=== PATIENT | female | born 1965 | race Caucasian/White ===

== ENCOUNTER 2024-02-21 17:45 | Emergency (ER) | payer OTHER, SELFPAY ==
[2024-02-21 18:02] VITALS: BP 130/87; PULSE 114; RESP 15; TEMP 36.6; O2SAT 98
[2024-02-21 19:14] LABS: Basophils # 0.1 10^3/uL (0.0-0.1); Basophils % 0.8 %; Eosinophils # 0.3 10^3/uL (0.0-0.8); Eosinophils % 3.9 %; Lymphocytes # 2.5 10^3/uL (0.8-4.8); Lymphocytes % 35.2 %; Mean Corpuscular HGB Conc 33.8 g/dL (30-55); Mean Corpuscular Hemoglobin 32.1 pg (27-33); Mean Corpuscular Volume 95.1 fl (85-98); Mean Platelet Volume 10.2 fL (7.4-10.4); Monocytes # 0.6 10^3/uL (0.2-0.9); Monocytes % 8.3 %; Neutrophils # 3.69 10^3/uL (1.8-7.7); Neutrophils % 51.7 %; Nucleated Red Blood Cells % 0 %; Platelet Count 324 10^3/cmm (157-399); Red Blood Count 3.89 10^6/uL (3.85-5.65); Red Cell Distribution Width 13.5 % (12.1-15.1); White Blood Count 7.15 10^3/uL (3.29-11.43)
[2024-02-21 19:33] LABS: Alanine Aminotransferase 18 U/L (0-33); Albumin Level 4.6 g/dL (3.5-5.2); Alkaline Phosphatase 146 U/L (35-105); Anion Gap 15.2 (5-19); Aspartate Amino Transferase 19 U/L (0-32); Blood Urea Nitrogen 25 mg/dL (6-20); Calcium 9.4 mg/dL (8.5-10.5); Carbon Dioxide 27 mmol/L (22-29); Chloride 100 mmol/L (98-107); Creatinine Clr Calc Pharmacy 45.9612; Globulin 3.4 g/dL (1.3-4.6); Glucose 102 mg/dL (65-115); Lipase 55 U/L (13-60); Osmolality Calculated 293 mOsm/kg (285-295); Potassium 3.2 mmol/L (3.5-5.1); Sodium 139 mmol/L (136-145); Total Bilirubin 0.2 mg/dL (0.15-1.2)
--- NOTE | 2024-02-21 19:43 | ED_ITS ---
HPI - Abdominal Pain 2 General: Chief Complaint: Abdominal Pain Stated Complaint: abd pain, diarrhea Time Seen by Provider: 02/21/24 19:40 History of Present Illness: 58-year-old female with a history of div erticulosis/diverticulitis, hypertension, hypothyroidism and anxiety who presents to the emergency room with left lower and upper quadrant abdominal pain and diarrhea for several days. She is very tearful on presentation. She has had some nausea no vomiting. No known fevers. No chest pain. No shortness of breath. No altered mental status. No focal motor deficits. Review of Systems 2 Narrative: Constitutional symptoms: Negative except as documented in HPI. Skin symptoms: Negative except as documented in HPI. Eye symptoms: Negative except as documented in HPI. ENMT symptoms: Negative except as documented in HPI. Respiratory symptoms: Negative except as documented in HPI. Cardiovascular symptoms: Negative except as documented in HPI. Gastrointestinal symptoms: Negative except as documented in HPI. Genitourinary symptoms: Negative except as documented in HPI. Musculoskeletal symptoms: Negative except as documented in HPI. Neurologic symptoms: Negative except as documented in HPI. Psychiatric symptoms: Negative except as documented in HPI. Endocrine symptoms: Negative except as documented in HPI. Physical Exam 2 Narrative: EXAM NARRATIVE: General: Alert, no acute distress. Skin: Warm, dry. Head: Normocephalic, atraumatic. Neck: Supple, trachea midline. Eye: Extraocular movements are intact. Ears, nose, mouth and throat: mucosa moist. Cardiovascular: Regular, Normal peripheral perfusion. Respiratory: Lungs are clear to auscultation, respirations are non-labored, breath sounds are equal, Symmetrical chest wall expansion. Gastrointestinal: Soft, moderate left-sided abdominal pain, Non distended, Normal bowel sounds. Musculoskeletal: Normal ROM, no deformity. Neurological: Alert and oriented, No focal neurological deficit observed. Psychiatric: Cooperative, tearful Course 2 Vital Signs: Vital signs: Vital Signs Temperature 97.9 F 02/21/24 18:02 Pulse Rate 71 02/21/24 21:32 Respiratory Rate 16 02/21/24 21:32 Blood Pressure 116/82 02/21/24 21:32 Pulse Oximetry 94 02/21/24 21:32 Oxygen Delivery Me thod Room Air 02/21/24 18:02 MDM - Abdominal Pain Medical Decision Making Medical decision making: Differential diagnosis including but not limited to and based on the above HPI, review of systems and physical exam: First concern be for diverticulitis lab work and a CT was ordered. Also concern for dehydration so BMP look at renal function. Also would be concern for UTI or ureterolithiasis so urine was ordered. Orders placed to evaluate differential diagnosis based on the above differential, HPI and physical exam Lab Review: Laboratory results were reviewed and interpreted by myself the emergency room physician. Lab work is unremarkable. No leukocytosis. BUN and creatinine are 25 and 1.2. So she has some slight renal insufficiency and is receiving fluids, however I do not have any baseline labs. I reviewed the patient's medical record. CT of the abdomen and pelvis: Patient has multiple diverticuli. No obvious acute inflammatory changes. No signs of obstruction. No other acute findings. This was reviewed and interpreted by myself the emergency room physician. I also reviewed the radiology report. Reexamination: Patient remained stable. She still having some pain. Toradol did not help but she does not want anything any stronger. No altered mental status. No focal motor deficits. However she continues to ask for something for pain but stronger than Tylenol and ibuprofen so organ to try some tramadol. She feels like [place] was too strong. No increased work of breathing. No altered mental status. No focal motor deficits. We discussed further and she seems to have some chronic abdominal issues. She is having pretty severe pain and says it feels just like when she has had diverticulitis so although the CT scan does not show any active inflammation I am going to treat her with antibiotics for now. Assessment and plan: Diverticulitis Dehydration Abdominal pain -IV fluids and IV Toradol initially. ? IV Flagyl and IV Cipro. ? We are trying oral tramadol here. - Discharged home - Discussed findings and plan with patient. Answered any questions. - All laboratory values were reviewed and interpreted personally by myself, the ER physician - All imaging was reviewed and interpreted personally by myself, the ER physician. - Evaluation and treatment of this problem were appropriate in the emergency setting : Lab Data 02/21/24 19:05 02/21/24 19:05 Labs/Radiology: Radiology Impressions Abdomen/Pelvis CT 02/21/24 19:45 IMPRESSION: No acute subdiaphragmatic pathology. Laboratory Results WBC 7.15 10^3/uL (3.29-11.43) 02/21/24 19:05 RBC 3.89 10^6/uL (3.85-5.65) 02/21/24 19:05 Hgb 12.50 g/dL (11.27-16.99) 02/21/24 19:05 Hct 37.0 % (36-47) 02/21/24 19:05 MCV 95.1 fl (85-98) 02/21/24 19:05 MCH 32.1 pg (27-33) 02/21/24 19:05 MCHC 33.8 g/dL (30-55) 02/21/24 19:05 RDW 13.5 % (12.1-15.1) 02/21/24 19:05 Plt Count 324 10^3/cmm (157-399) 02/21/24 19:05 MPV 10.2 fL (7.4-10.4) 02/21/24 19:05 Neut % (Auto) 51.7 % 02/21/24 19:05 Lymph % (Auto) 35.2 % 02/21/24 19:05 [place] % (Auto) 8.3 % 02/21/24 19:05 Eos % (Auto) 3.9 % 02/21/24 19:05 Baso % (Auto) 0.8 % 02/21/24 19:05 Neut # (Auto) 3.69 10^3/uL (1.8-7.7) 02/21/24 19:05 Lymph # (Auto) 2.5 10^3/uL (0.8-4.8) 02/21/24 19:05 [place] # (Auto) 0.6 10^3/uL (0.2-0.9) 02/21/24 19:05 Eos # (Auto) 0.3 10^3/uL (0.0-0.8) 02/21/24 19:05 Baso # (Auto) 0.1 10^3/uL (0.0-0.1) 02/21/24 19:05 Nucleated RBC % (auto) 0 % 02/21/24 19:05 Nucleated RBCs # 0.0 /100WBC 02/21/24 19:05 Sodium 139 mmol/L (136-145) 02/21/24 19:05 Potassium 3.2 mmol/L (3.5-5.1) L 02/21/24 19:05 Chloride 100 mmol/L (98-107) 02/21/24 19:05 Carbon Dioxide 27 mmol/L (22-29) 02/21/24 19:05 Anion Gap 15.2 (5-19) 02/21/24 19:05 BUN 25 mg/dL (6-20) H 02/21/24 19:05 Creatinine 1.2 mg/dL (0.5-0.9) H 02/21/24 19:05 GFR Calculation 46.0 mL/min (90-130) L 02/21/24 19:05 Glucose 102 mg/dL (65-115) 02/21/24 19:05 Calculated Osmolality 293 mOsm/kg (285-295) 02/21/24 19:05 Calcium 9.4 mg/dL (8.5-10.5) 02/21/24 19:05 Total Bilirubin 0.2 mg/dL (0.15-1.2) 02/21/24 19:05 AST 19 U/L (0-32) 02/21/24 19:05 ALT 18 U/L (0-33) 02/21/24 19:05 Alkaline Phosphatase 146 U/L (35-105) H 02/21/24 19:05 Total Protein 8.0 g/dL (6.6-8.7) 02/21/24 19:05 Albumin 4.6 g/dL (3.5-5.2) 02/21/24 19:05 Globulin 3.4 g/dL (1.3-4.6) 02/21/24 19:05 Lipase 55 U/L (13-60) 02/21/24 19:05 Urine Color Yellow (Yellow) 02/21/24 21:25 Urine Appearance Clear (CLEAR) 02/21/24 21:25 Urine pH 5 (5-7) 02/21/24 21: Ur Specific Trade 1.010 (1.005-1.030) 02/21/24 21: Urine Protein Neg (Negative) 02/21/24 21: Urine Glucose (UA) Norm (Normal) 02/21/24 21:25 Urine Ketones Negative (Negative) 02/21/24 21:25 Urine Blood 2+ (Negative) H 02/21/24 21:25 Urine Nitrate Negative (Negative) 02/21/24 21:25 Urine Bilirubin Neg (Negative) 02/21/24 21:25 Urine Urobilinogen Neg mg/dL (Negative) 02/21/24 21:25 Ur Leukocyte Esterase Negative (Negative) 02/21/24 21:25 Urine RBC 5-10 /hpf (0-2) H 02/21/24 21:25 Urine WBC None /hpf (0-5) 02/21/24 21:25 Ur Squamous Epith Cells 0-4 /hpf (0-5) H 02/21/24 21:25 Amorphous Sediment Not Reportable 02/21/24 21:25 Urine Bacteria Trace /hpf (NONE) 02/21/24 21:25 Urine Mucus 1+ /hpf 02/21/24 21:25 All radiology interpretation(s) finalized by discharge Discharge Plan Discharge Patient Disposition: Home Clinical Impression: Diverticulitis Condition: Stable Prescriptions: New metronidazole 500 mg tablet 500 mg PO Q8H 10 Days Qty: 30 0RF ciprofloxacin HCl 500 mg tablet 500 mg PO BID 10 Days Qty: 20 0RF tramadol 50 mg tablet 50 mg PO Q8H PRN (Reason: pain) Qty: 20 0RF diclofenac sodium 50 mg tablet,delayed release (DR/EC) 50 mg PO Q12H Qty: 20 0RF No Action levothyroxine 75 mcg capsule 75 mcg PO DAILY lisinopril-hydrochlorothiazide 20-25 mg tablet 1 tab PO DAILY alprazolam 0.5 mg tablet extended release 24 hr 0.5 mg PO DAILY alprazolam 1 mg tablet 1 mg PO DAILY mirtazapine 15 mg tablet 15 mg PO DAILY Discharge Orders: Discharge ED (Routine); Ordered 02/21/24 Ordered By: Charmaine Pritchard Referrals: Laura Austin DO [Primary Care Provider] - 4-7 days Discharge Diet: Advance as tolerated Discharge Activity: Resume usual activity Patient Instructions: Diverticulitis (ED), Diverticulitis Diet (ED), Opioid Safety, Pain Management Activity Restrictions/Additional Instructions: Thank you for choosing [facility] for your healthcare needs today. Please realize this is an emergency room and that we are providing you with a medical screening exam and this may not be complete and all inclusive of all the testing and or work up that you may need to determine your ailment or severity of your illness. You have been screened and evaluated and felt safe for discharge. Health conditions do change or evolve sometimes and as such it is important that you follow up with your Primary Doctor to be re checked, 3-5 days is a general good time frame for follow up. You are always welcome to return to the ED for re assessment if your symptoms are worsening or you have new concerns Coding Level of Care Code ED Probation Counselor for Jt Vera
--- NOTE | 2024-02-21 19:45 | CTR_ITS ---
PROCEDURE INFORMATION: Exam: CT Abdomen And Pelvis With Contrast Exam date and time: 02/21/2024 8:14 PM Age: 58 years old Clinical indication: Abdominal pain TECHNIQUE: Imaging protocol: Computed tomography of the abdomen and pelvis with contrast. Radiation optimization: All CT scans at this facility use at least one of these dose optimization techniques: automated exposure control; mA and/or kV adjustment per patient size (includes targeted exams where dose is matched to clinical indication); or iterative reconstruction. Contrast material: OMNI 350; Contrast volume: 100 ml; Contrast route: INTRAVENOUS (IV); COMPARISON: No relevant prior studies available. RADIATION DOSE METRICS: Total DLP (mGy-cm): 418.64 FINDINGS: Liver: Normal. No mass. Gallbladder and bile ducts: Cholecystectomy. Pancreas: Normal. No ductal dilation. Spleen: Normal. No splenomegaly. Adrenal glands: Normal. No mass. Kidneys and ureters: Normal. No hydronephrosis. Stomach and bowel: Extensive diverticulosis without evidence of diverticulitis. Appendix: No evidence of appendicitis. Intraperitoneal space: Unremarkable. No free air. No significant fluid collection. Vasculature: Unremarkable. No abdominal aortic aneurysm. Lymph nodes: Unremarkable. No enlarged lymph nodes. Urinary bladder: Unremarkable as visualized. Reproductive: Unremarkable as visualized. Bones/joints: Unremarkable. No acute fracture. Soft tissues: Unremarkable. CT/CT abdomen pelvis w con* [id number] IMPRESSION: No acute subdiaphragmatic pathology.
[2024-02-21 20:01] VITALS: BP 113/67; PULSE 78; RESP 16; O2SAT 94
[2024-02-21] MEDS: ondansetron 2 mg/ML SDV 2 mL 4 MG IVP (20:05)
[2024-02-21] MEDS: ketorolac 30 mg/mL INJ IVP (20:05)
[2024-02-21] MEDS: sodium chloride 0.9% 1,000 ML 999 ML IV (20:05)
[2024-02-21] MEDS: iohexol 350 mg/mL 500 mL Btl (per mL) IV (20:15)
[2024-02-21 21:00] VITALS: BP 117/72; PULSE 64; RESP 16; O2SAT 98
[2024-02-21 21:32] VITALS: BP 116/82; PULSE 71; RESP 16; O2SAT 94
[2024-02-21] MEDS: metroNIDAZOLE 500 MG Tablet PO (21:45)
[2024-02-21] MEDS: ciprofloxacin 500 mg Tablet PO (21:45)
[2024-02-21 21:50] LABS: Add Urine Microscopic? YES; Bilirubin Urine Neg (Negative); Blood Urine 2+ (Negative); Glucose Urine UA Norm (Normal); Ketones Urine Negative (Negative); Leukocyte Esterase Urine Negative (Negative); Nitrate Urine Negative (Negative); Protein Urine Neg (Negative); Squamous Epithelial Cell Urine 0-4 /hpf (0-5); Urine Appearance Clear (CLEAR); Urine Color Yellow (Yellow); Urobilinogen Urine Neg (Negative); pH Urine 5 (5-7)
[2024-02-21 21:51] LABS: Add Urine Culture? No; Bacteria Urine TRACE /hpf; Mucus Urine 1+ /hpf
[2024-02-21] MEDS: TRAMadol 50 mg Tablet PO (22:35)
== END 2024-02-21 22:35 | disposition home or self-care (01) ==
PROVIDERS: Emergency Medicine; Emergency Provider Emergency Medicine; PCP Family Medicine
DX: K57.92 Diverticulitis of intestine, part unspecified, without perforation or abscess without bleeding (principal)
CPT/HCPCS: 36415; 74177; 80053; 81001; 83690; 85025; 96361; 96374; 96375; 99285; J1885; J2405; J7030; Q9967

== ENCOUNTER 2024-03-29 09:06 | Outpatient (CLI) | payer OTHER, SELFPAY ==
[2024-03-29 10:09] LABS: Free T4 Free Thyroxine 1.44 ng/dL (0.82-1.77); T3 Free 2.3 PG/ML (2.0-4.4); Thyroid Stimulating Hormone 1.52 uIU/mL (0.27-4.20)
[2024-03-29 10:51] LABS: 25 Hydroxy Vitamin D 25 ng/mL (30-100)
== END 2024-03-29 09:07 | disposition home or self-care (01) ==
LOC: LAB 09:11
PROVIDERS: PCP Family Medicine; Visit Provider Family Medicine
DX: E89.0 Postprocedural hypothyroidism (principal); E55.9 Vitamin D deficiency, unspecified
CPT/HCPCS: 36415; 82306; 84439; 84443; 84481

== ENCOUNTER 2024-04-22 15:38 | Emergency (ER) | payer OTHER, SELFPAY ==
[2024-04-22] VITALS (8 sets, daily range): BP systolic 86–121; BP diastolic 59–79; PULSE 80–115; RESP 17; TEMP 36.7; O2SAT 96–98; BMI 23.3
--- NOTE | 2024-04-22 16:36 | ED_ITS ---
HPI - Female Genitourinary 2 General: Chief complaint: Urogenital-Female Stated complaint: boil sent from Time Seen by Provider: 04/22/24 15:54 Source: patient Mode of arrival: ambulatory Limitations: no limitations History of Present Illness: Patient is a 58-year-old female presents to ED today after she was sent from the [facility] walk-in clinic for evaluation of a possible Bartholin abscess. Patient states over the past week she has had worsening swelling and pain near her left labia. She has not had any discharge from the area. No previous history of Bartholin abscesses or perirectal abscesses. No history of MRSA. MD elicited complaint: other ( boil near L labia) Onset (ago): day(s) Severity: moderate Consistency: constant Vaginal discharge: none Vaginal bleeding: none Exacerbating factors: other (sitting, walking) Relieving factors: none Associated symptoms: Deny abdominal pain, nausea or vaginal discharge Treatment prior to arrival: sitz bath Sexual activity: No Patient : No Review of Systems 2 Const: Denies: fever(s), chills, body aches, fatigue or malaise Card: Denies: chest pain Resp: Denies: dyspnea GI: Denies: abdominal pain, nausea, vomiting or change in bowel habits : Reports: genital lesions; Denies: flank pain, difficulty voiding, dysuria, urinary frequency, urinary urgency, urinary hesitancy, hematuria, genital pruritis, vaginal odor, vaginal bleeding or vaginal discharge [facility] ED 2 PFSH: Social History Smoking and tobacco/nicotine status: unknown if used tobacco/nicotine Physical Exam 2 Const: COMMON NORMALS: no acute distress, average body habitus, no limitations, healthy appearing, alert and well nourished : GENITAL IMAGES (FEMALE): 1. clearly demarcated erythema/induration 2. pea sized fluctuant abscess Neuro: SENSORIUM/ORIENTATION: Yes alert Procedures Abscess I/D Site: idris-rectal Side (if applicable): left Local Anesthetic: lidocaine 1% and with epi Amount of anesthesia used (mL): 3.0 Technique: incised with #11 blade Amount of fluid expressed (mL): 3.0 Packing used?: plain Course 2 Consultations: Consultation #1: Dr. 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 Vital signs are stable. Blood work overall is unremarkable. She has some mild hypokalemia. She is on potassium supplements at home. Recommend she increase prasanth over the next 3 to 5 days. She was given 40 mEq prior to discharge. Case discussed with general surgeon Dr. Dockery. Abscess was drained and she will be placed on Augmentin. Will follow-up with general surgery. Return precautions given. She has PCP appointment on Wednesday she can follow up with as well. Medical Records I reviewed the patient's medical records. Lab Data I reviewed the patient's lab results. 04/22/24 17:20 04/22/24 17:[address] 04/22/24 16:36 IMPRESSION: Left anterior perianal subcutaneous 1.2 cm ill-defined collection, suggestive of small abscess, likely related to perianal fistula. No soft tissue emphysema. Laboratory Results WBC 8.75 10^3/uL (3.29-11.43) 04/22/24 17:20 RBC 3.17 10^6/uL (3.85-5.65) L 04/22/24 17:20 Hgb 9.90 g/dL (11.27-16.99) L 04/22/24 17:20 Hct 30.5 % (36-47) L 04/22/24 17:20 MCV 96.2 fl (85-98) 04/22/24 17:20 MCH 31.2 pg (27-33) 04/22/24 17:20 MCHC 32.5 g/dL (30-55) 04/22/24 17:20 RDW 13.4 % (12.1-15.1) 04/22/24 17:20 Plt Count 243 10^3/cmm (157-399) 04/22/24 17:20 MPV 10.4 fL (7.4-10.4) 04/22/24 17:20 Neut % (Auto) 70.7 % 04/22/24 17:20 Lymph % (Auto) 16.6 % 04/22/24 17:20 [place] % (Auto) 9.6 % 04/22/24 17:20 Eos % (Auto) 2.3 % 04/22/24 17:20 Baso % (Auto) 0.6 % 04/22/24 17:20 Neut # (Auto) 6.19 10^3/uL (1.8-7.7) 04/22/24 17:20 Lymph # (Auto) 1.5 10^3/uL (0.8-4.8) 04/22/24 17:20 [place] # (Auto) 0.8 10^3/uL (0.2-0.9) 04/22/24 17:20 Eos # (Auto) 0.2 10^3/uL (0.0-0.8) 04/22/24 17:20 Baso # (Auto) 0.1 10^3/uL (0.0-0.1) 04/22/24 17:20 Nucleated RBC % (auto) 0 % 04/22/24 17:20 Nucleated RBCs # 0.0 /100WBC 04/22/24 17:20 Sodium 140 mmol/L (136-145) 04/22/24 17:20 Potassium 2.9 mmol/L (3.5-5.1) L 04/22/24 17:20 Chloride 102 mmol/L (98-107) 04/22/24 17:20 Carbon Dioxide 25 mmol/L (22-29) 04/22/24 17:20 Anion Gap 15.9 (5-19) 04/22/24 17:20 BUN 22 mg/dL (6-20) H 04/22/24 17:20 Creatinine 1.3 mg/dL (0.5-0.9) H 04/22/24 17:20 GFR Calculation 41.9 mL/min (90-130) L 04/22/24 17:20 Glucose 99 mg/dL (65-115) 04/22/24 17:20 Calculated Osmolality 293 mOsm/kg (285-295) 04/22/24 17:20 Calcium 9.2 mg/dL (8.5-10.5) 04/22/24 17:20 Total Bilirubin 0.3 mg/dL (0.15-1.2) 04/22/24 17:20 AST 31 U/L (0-32) 04/22/24 17:20 ALT 40 U/L (0-33) H 04/22/24 17:20 Alkaline Phosphatase 150 U/L (35-105) H 04/22/24 17:20 Total Protein 6.6 g/dL (6.6-8.7) 04/22/24 17:20 Albumin 3.6 g/dL (3.5-5.2) 04/22/24 17:20 Globulin 3.0 g/dL (1.3-4.6) 04/22/24 17:20 All radiology interpretation(s) finalized by discharge Discharge Plan Discharge Patient Disposition: Home Clinical Impression: Abscess, perianal Condition: Stable Prescriptions: New amoxicillin-pot clavulanate 875-125 mg tablet 1 tab PO BID Qty: 14 0RF No Action levothyroxine 75 mcg capsule 75 mcg PO DAILY lisinopril-hydrochlorothiazide 20-25 mg tablet 1 tab PO DAILY alprazolam 0.5 mg tablet extended release 24 hr 0.5 mg PO DAILY alprazolam 1 mg tablet 1 mg PO DAILY mirtazapine 15 mg tablet 15 mg PO DAILY diclofenac sodium 50 mg tablet,delayed release (DR/EC) 50 mg PO Q12H Qty: 20 0RF Discharge Orders: Discharge ED (Routine); Ordered 04/22/24 Ordered By: Tammi Mario Referrals: Laura Austin DO [Primary Care Provider] - Patient Instructions: Anorectal Abscess and Anal Fistula (ED), Abscess Incision and Drainage (DC) Activity Restrictions/Additional Instructions: As we discussed continue your sitz baths. Leave the packing in until your appointment with primary care on Wednesday. I will place a case management referral follow-up with general surgery for further evaluation of your perianal abscess with possible perianal fistula. You need to return to the emergency department for worsening swelling, pain, fevers, or any other concerns you may have. Hope you begin to feel better soon. Coding Level of Care Code ED [employer] House Laborer for Jt Vera
--- NOTE | 2024-04-22 16:36 | CTR_ITS ---
PROCEDURE INFORMATION: Exam: CT Pelvis With Contrast Exam date and time: 04/22/2024 4:59 PM Age: 58 years old Clinical indication: Other: Genital/rectal abscess; Prior surgery; Surgery date: 6+ months; Surgery type: Gb; Patient HX: PT C/O perineal/labial abcess that started Wednesday, PT has been doing warm compresses until her appt with pcp on Wednesday. Redness and pain is spreading to buttock. TECHNIQUE: Imaging protocol: Computed tomography of the pelvis with contrast. Radiation optimization: All CT scans at this facility use at least one of these dose optimization techniques: automated exposure control; mA and/or kV adjustment per patient size (includes targeted exams where dose is matched to clinical indication); or iterative reconstruction. Contrast material: OMNI 350; Contrast volume: 100 ml; Contrast route: INTRAVENOUS (IV); COMPARISON: CT abdomen pelvis w con* [id number] 02/21/2024 8:14 PM RADIATION DOSE METRICS: Total DLP (mGy-cm): 305.77 FINDINGS: Intestine: Diverticulosis of the descending and sigmoid colon. Appendix: No evidence of appendicitis. Intraperitoneal space: Unremarkable. No free air. No significant fluid collection. Vasculature: Pelvic phleboliths. Lymph nodes: Unremarkable. No enlarged lymph nodes. Reproductive: Normal as visualized. Urinary bladder: Normal. No mass. Bones/joints: Mild curvature of the lumbar spine convex to the right. Mild degenerative disease symphysis pubis, bilateral hip joints and bilateral sacroiliac joints. Bilateral L4-L5 facet joint arthropathy with mild anterolisthesis of L4 over L5. Soft tissues: Fat containing umbilical hernia. Calcified subcutaneous granulomas in the left buttock. There is left anterior perianal subcutaneous fat stranding with a 1.2 cm ill-defined subcutaneous collection, suggestive of cellulitis with early abscess formation. CT/CT pelvis w con* [id number] IMPRESSION: Left anterior perianal subcutaneous 1.2 cm ill-defined collection, suggestive of small abscess, likely related to perianal fistula. No soft tissue emphysema.
[2024-04-22] MEDS: iohexol 350 mg/mL 500 mL Btl (per mL) IV (17:01)
[2024-04-22] MEDS: sodium chloride 0.9% 1,000 ML 999 ML IV (17:10)
[2024-04-22 17:31] LABS: Basophils # 0.1 10^3/uL (0.0-0.1); Basophils % 0.6 %; Eosinophils # 0.2 10^3/uL (0.0-0.8); Eosinophils % 2.3 %; Hematocrit 30.5 % (36-47); Lymphocytes # 1.5 10^3/uL (0.8-4.8); Lymphocytes % 16.6 %; Mean Corpuscular HGB Conc 32.5 g/dL (30-55); Mean Corpuscular Hemoglobin 31.2 pg (27-33); Mean Corpuscular Volume 96.2 fl (85-98); Mean Platelet Volume 10.4 fL (7.4-10.4); Monocytes # 0.8 10^3/uL (0.2-0.9); Monocytes % 9.6 %; Neutrophils # 6.19 10^3/uL (1.8-7.7); Neutrophils % 70.7 %; Nucleated Red Blood Cells % 0 %; Platelet Count 243 10^3/cmm (157-399); Red Blood Count 3.17 10^6/uL (3.85-5.65); Red Cell Distribution Width 13.4 % (12.1-15.1); White Blood Count 8.75 10^3/uL (3.29-11.43)
[2024-04-22 17:48] LABS: Alanine Aminotransferase 40 U/L (0-33); Albumin Level 3.6 g/dL (3.5-5.2); Alkaline Phosphatase 150 U/L (35-105); Anion Gap 15.9 (5-19); Aspartate Amino Transferase 31 U/L (0-32); Blood Urea Nitrogen 22 mg/dL (6-20); Calcium 9.2 mg/dL (8.5-10.5); Carbon Dioxide 25 mmol/L (22-29); Chloride 102 mmol/L (98-107); Glomerular Filtration Rate 41.9 mL/min (90-130); Glucose 99 mg/dL (65-115); Osmolality Calculated 293 mOsm/kg (285-295); Sodium 140 mmol/L (136-145); Total Bilirubin 0.3 mg/dL (0.15-1.2); Total Protein 6.6 g/dL (6.6-8.7)
[2024-04-22 17:50] LABS: Creatinine Clr Calc Pharmacy 42.2924; Potassium 2.9 mmol/L (3.5-5.1)
[2024-04-22] MEDS: potassium chloride ER 20 mEq Tablet 40 MEQ PO (17:58)
[2024-04-22] MEDS: amoxicillin-clav 875-125 mg Tablet 1 TAB PO (18:38)
--- NOTE | 2024-04-24 07:41 | DCPLANNER ---
message sent to gen surgery for er f/u
== END 2024-04-22 18:49 | disposition home or self-care (01) ==
PROVIDERS: Family Medicine; Emergency Provider Physician Assistant; PCP Family Medicine
DX: K61.0 Anal abscess (principal)
CPT/HCPCS: 46050; 72193; 80053; 85025; 87040; 87070; 87075; 87205; 96360; 99284; J7030; Q9967

== ENCOUNTER 2024-06-09 08:40 | Outpatient (CLI) | payer MEDICAID, SELFPAY ==
[2024-06-09 08:58] LABS: Basophils # 0.1 10^3/uL (0.0-0.1); Basophils % 1.3 %; Eosinophils # 0.2 10^3/uL (0.0-0.8); Eosinophils % 4.7 %; Hematocrit 36.5 % (36-47); Lymphocytes # 1.5 10^3/uL (0.8-4.8); Lymphocytes % 31.3 %; Mean Corpuscular HGB Conc 32.3 g/dL (30-55); Mean Corpuscular Hemoglobin 30.6 pg (27-33); Mean Corpuscular Volume 94.6 fl (85-98); Mean Platelet Volume 10.5 fL (7.4-10.4); Monocytes # 0.4 10^3/uL (0.2-0.9); Monocytes % 9.2 %; Neutrophils # 2.47 10^3/uL (1.8-7.7); Neutrophils % 53.1 %; Nucleated Red Blood Cells % 0 %; Platelet Count 253 10^3/cmm (157-399); Red Blood Count 3.86 10^6/uL (3.85-5.65); Red Cell Distribution Width 13.5 % (12.1-15.1); White Blood Count 4.66 10^3/uL (3.29-11.43)
[2024-06-09 09:26] LABS: Alanine Aminotransferase 25 U/L (0-33); Albumin Level 4.3 g/dL (3.5-5.2); Alkaline Phosphatase 152 U/L (35-105); Anion Gap 13.8 (5-19); Aspartate Amino Transferase 28 U/L (0-32); Blood Urea Nitrogen 23 mg/dL (6-20); Calcium 9.8 mg/dL (8.5-10.5); Carbon Dioxide 29 mmol/L (22-29); Chloride 99 mmol/L (98-107); Free T4 Free Thyroxine 1.45 ng/dL (0.82-1.77); Globulin 3.6 g/dL (1.3-4.6); Glucose 123 mg/dL (65-115); Osmolality Calculated 291 mOsm/kg (285-295); Potassium 3.8 mmol/L (3.5-5.1); Sodium 138 mmol/L (136-145); T3 Free 2.7 PG/ML (2.0-4.4); Thyroid Stimulating Hormone 0.64 uIU/mL (0.27-4.20); Total Bilirubin 0.3 mg/dL (0.15-1.2); Total Protein 7.9 g/dL (6.6-8.7)
[2024-06-09 09:56] LABS: 25 Hydroxy Vitamin D 62 ng/mL (30-100)
== END 2024-06-09 08:41 | disposition home or self-care (01) ==
PROVIDERS: PCP Family Medicine; Visit Provider Family Medicine
DX: F41.1 Generalized anxiety disorder (principal); E79.2 Myoadenylate deaminase deficiency; E78.2 Mixed hyperlipidemia; I10 Essential (primary) hypertension
CPT/HCPCS: 36415; 80053; 82306; 84439; 84443; 84481; 85025

== ENCOUNTER 2024-08-25 10:15 | Outpatient (CLI) | payer OTHER, MEDICAID, SELFPAY ==
[2024-08-25 10:40] LABS: Basophils # 0.1 10^3/uL (0.0-0.1); Basophils % 1.3 %; Eosinophils # 0.3 10^3/uL (0.0-0.8); Eosinophils % 6.1 %; Hematocrit 35.2 % (36-47); Lymphocytes # 1.5 10^3/uL (0.8-4.8); Lymphocytes % 29.4 %; Mean Corpuscular HGB Conc 32.7 g/dL (30-55); Mean Corpuscular Hemoglobin 30.7 pg (27-33); Mean Corpuscular Volume 93.9 fl (85-98); Mean Platelet Volume 10.1 fL (7.4-10.4); Monocytes # 0.4 10^3/uL (0.2-0.9); Monocytes % 7.8 %; Neutrophils # 2.86 10^3/uL (1.8-7.7); Neutrophils % 54.8 %; Nucleated Red Blood Cells % 0 %; Platelet Count 264 10^3/cmm (157-399); Red Blood Count 3.75 10^6/uL (3.85-5.65); Red Cell Distribution Width 13.6 % (12.1-15.1); White Blood Count 5.23 10^3/uL (3.29-11.43)
[2024-08-25 11:11] LABS: Alanine Aminotransferase 43 U/L (0-33); Albumin Level 4.3 g/dL (3.5-5.2); Alkaline Phosphatase 144 U/L (35-105); Anion Gap 14.1 (5-19); Aspartate Amino Transferase 48 U/L (0-32); Blood Urea Nitrogen 22 mg/dL (8-23); Calcium 9.7 mg/dL (8.5-10.5); Carbon Dioxide 27 mmol/L (22-29); Chloride 101 mmol/L (98-107); Free T4 Free Thyroxine 1.06 ng/dL (0.82-1.77); Globulin 2.9 g/dL (1.3-4.6); Glomerular Filtration Rate 45.8 mL/min (90-130); Glucose 109 mg/dL (65-115); Osmolality Calculated 290 mOsm/kg (285-295); Potassium 4.1 mmol/L (3.5-5.1); Sodium 138 mmol/L (136-145); Thyroid Stimulating Hormone 0.83 uIU/mL (0.27-4.20); Total Bilirubin 0.2 mg/dL (0.15-1.2); Total Protein 7.2 g/dL (6.6-8.7)
== END 2024-08-25 10:16 | disposition home or self-care (01) ==
PROVIDERS: PCP Family Medicine; Visit Provider Family Medicine
DX: I10 Essential (primary) hypertension (principal); E89.0 Postprocedural hypothyroidism
CPT/HCPCS: 36415; 80053; 84439; 84443; 84481; 85025

== ENCOUNTER 2024-11-03 09:33 | Outpatient (CLI) | payer MEDICAID, SELFPAY ==
[2024-11-03 10:11] LABS: Basophils # 0.1 10^3/uL (0.0-0.1); Basophils % 0.9 %; Eosinophils # 0.6 10^3/uL (0.0-0.8); Eosinophils % 7.3 %; Hematocrit 38.8 % (36-47); Lymphocytes # 1.6 10^3/uL (0.8-4.8); Lymphocytes % 20.3 %; Mean Corpuscular HGB Conc 32.2 g/dL (30-55); Mean Corpuscular Hemoglobin 30.5 pg (27-33); Mean Corpuscular Volume 94.6 fl (85-98); Mean Platelet Volume 10.5 fL (7.4-10.4); Monocytes # 0.5 10^3/uL (0.2-0.9); Monocytes % 5.9 %; Neutrophils # 5.13 10^3/uL (1.8-7.7); Neutrophils % 65.3 %; Nucleated Red Blood Cells % 0 %; Platelet Count 320 10^3/cmm (157-399); White Blood Count 7.84 10^3/uL (3.29-11.43)
[2024-11-03 10:40] LABS: Alanine Aminotransferase 46 U/L (0-33); Albumin Level 4.5 g/dL (3.5-5.2); Alkaline Phosphatase 188 U/L (35-105); Anion Gap 17.7 (5-19); Aspartate Amino Transferase 45 U/L (0-32); Blood Urea Nitrogen 20 mg/dL (8-23); Carbon Dioxide 27 mmol/L (22-29); Chloride 100 mmol/L (98-107); Chol HDL Ratio 3.46 mg/dL (0.0-4.40); Cholesterol 197 mg/dL (0-200); Free T4 Free Thyroxine 1.22 ng/dL (0.82-1.77); Globulin 3.7 g/dL (1.3-4.6); Glomerular Filtration Rate 50.7 mL/min (90-130); Glucose 110 mg/dL (65-115); HDL Cholesterol 57 mg/dL (60-100); LDL Cholesterol Calculated 103 mg/dL (50-129); LDL HDL Ratio 1.81 RATIO (0.00-3.22); Osmolality Calculated 295 mOsm/kg (285-295); Potassium 3.7 mmol/L (3.5-5.1); Sodium 141 mmol/L (136-145); Total Bilirubin 0.3 mg/dL (0.15-1.2); Total Protein 8.2 g/dL (6.6-8.7); Triglycerides 187 mg/dL (0-150)
== END 2024-11-03 09:34 | disposition home or self-care (01) ==
LOC: LAB 09:36
PROVIDERS: PCP Family Medicine; Visit Provider Family Medicine
DX: I10 Essential (primary) hypertension (principal); E89.0 Postprocedural hypothyroidism; E78.2 Mixed hyperlipidemia; Z85.850 Personal history of malignant neoplasm of thyroid
CPT/HCPCS: 36415; 80053; 80061; 84439; 84443; 84481; 85025

== ENCOUNTER 2025-04-09 09:48 | Outpatient (CLI) | payer MEDICAID, SELFPAY ==
[2025-04-09 11:02] LABS: Hematocrit 34.7 % (36-47); Hemoglobin 11.00 g/dL (11.27-16.99); Mean Corpuscular HGB Conc 31.7 g/dL (30-55); Mean Corpuscular Hemoglobin 29.6 pg (27-33); Mean Corpuscular Volume 93.3 fl (85-98); Nucleated Red Blood Cells % 0 %; Platelet Count 286 10^3/cmm (157-399); Red Blood Count 3.72 10^6/uL (3.85-5.65); White Blood Count 5.75 10^3/uL (3.29-11.43)
[2025-04-09 11:47] LABS: Alanine Aminotransferase 36 U/L (0-33); Albumin Level 4.4 g/dL (3.5-5.2); Alkaline Phosphatase 190 U/L (35-105); Anion Gap 15.5 (5-19); Aspartate Amino Transferase 33 U/L (0-32); Blood Urea Nitrogen 22 mg/dL (8-23); Calcium 9.5 mg/dL (8.5-10.5); Carbon Dioxide 29 mmol/L (22-29); Chloride 99 mmol/L (98-107); Cholesterol 193 mg/dL (0-200); Free T4 Free Thyroxine 1.37 ng/dL (0.82-1.77); Globulin 3.3 g/dL (1.3-4.6); Glucose 90 mg/dL (65-115); HDL Cholesterol 47 mg/dL (60-100); Osmolality Calculated 293 mOsm/kg (285-295); Potassium 3.5 mmol/L (3.5-5.1); Sodium 140 mmol/L (136-145); Thyroid Stimulating Hormone 0.24 uIU/mL (0.27-4.20); Total Protein 7.7 g/dL (6.6-8.7); Triglycerides 143 mg/dL (0-150)
== END 2025-04-09 09:49 | disposition home or self-care (01) ==
LOC: LAB 09:55
PROVIDERS: PCP Family Medicine; Visit Provider Family Medicine
DX: E89.0 Postprocedural hypothyroidism (principal); E78.2 Mixed hyperlipidemia
CPT/HCPCS: 36415; 80053; 80061; 84439; 84443; 84481; 85025

== ENCOUNTER → 2025-04-19 13:16 | Outpatient (BNVA) | payer MEDICAID, SELFPAY | PROVIDERS: PCP Family Medicine; Visit Provider Internal Medicine | DX: R07.9 Chest pain, unspecified (principal) | CPT/HCPCS: 93005 ==

== ENCOUNTER 2025-05-22 11:52 | Outpatient (CLI) | payer MEDICAID, SELFPAY ==
--- NOTE | 2025-05-22 12:00 | USCV_ITS ---
Annie Panchal Age: 59 Gender: F : 1965 Exam Date: 05/22/2025 12:10 Ordering Phys: Alexander Ospina M.D ([email or web address]) Technologist: Exam Location: [facility] [place] Indication: ef sob BP: 140 / 74 HR: 90 Rhythm: Sinus Technical Quality: Adequate MEASUREMENTS (Male / Female) Normal Values 2D ECHO LV Diastolic Diameter PLAX 3.1 cm 4.2 - 5.9 / 3.9 - 5.3 cm IVS Diastolic Thickness 1.3 cm 0.6 - 1.0 / 0.6 - 0.9 cm IVS Systolic Thickness 1.6 cm LVPW Diastolic Thickness 1.3 cm 0.6 - 1.0 / 0.6 - 0.9 cm LVPW Systolic Thickness 1.8 cm LVOT Diameter 2.0 cm LV Ejection Fraction 2D Teich 64.0 % LV Ejection Fraction MOD 4C 38.1 % LV Ejection Fraction MOD 2C 72.9 % LV Ejection Fraction 2C AL 74.3 % LA Diameter 3.1 cm RA Systolic Volume 4C AL 22.2 ml RA Systolic Volume 4C MOD 22.2 ml Aorta at Sinotubular Diameter 3.7 cm IVC Diameter 1.3 cm M-MODE LA Ao Ratio MM 1.3 AV Cusp Separation MM 2.2 cm DOPPLER AV Peak Velocity 125.0 cm/s LVOT Peak Velocity 105.0 cm/s AV Area Cont Eq vti 3.1 cm squared AV Area Cont Eq pk 2.8 cm squared MV Peak Velocity 104.0 cm/s MV Area PHT 7.6 cm squared Mitral E to A Ratio 0.5 TV Peak Velocity 164.5 cm/s TR Peak Velocity 252.0 cm/s TR Peak Gradient 25.4 mmHg TV Peak E Velocity 111.0 cm/s PV Peak Velocity 95.0 cm/s FINDINGS Left Ventricle Normal left ventricular size, systolic function and wall thickness, with no regional wall motion abnormalities. Left ventricular ejection fraction is estimated at 60 %. Grade I/IV diastolic dysfunction (abnormal relaxation filling pattern), normal to mildly elevated filling pressures. Right Ventricle The right ventricle is normal in size and function. Right Atrium The right atrium is normal in size. Left Atrium The left atrium is normal in size. Mitral Valve Mildly thickened mitral valve. No mitral valve stenosis. Trace mitral valve regurgitation. Aortic Valve Moderate aortic valve calcification. No aortic valve stenosis. Trace aortic valve regurgitation. Tricuspid Valve Structurally normal tricuspid valve without significant stenosis or regurgitation. Pulmonary artery systolic pressure is normal. Pulmonic Valve Structurally normal pulmonic valve without significant stenosis. There is no pulmonic regurgitation. Pericardium Normal pericardium without effusion. Aorta Normal ascending aorta dimension. IVC The inferior vena cava appears normal. CONCLUSIONS Normal left ventricular size, systolic function and wall thickness, with no regional wall motion abnormalities. Left ventricular ejection fraction is estimated at 60 %. Grade I/IV diastolic dysfunction (abnormal relaxation filling pattern), normal to mildly elevated filling pressures. Mildly thickened mitral valve. No mitral valve stenosis. Trace mitral valve regurgitation. Moderate aortic valve calcification. No aortic valve stenosis. Trace aortic valve regurgitation. There is no pericardial effusion. Right atrial pressure is around 5 mm of mercury. Mario Flynn MD (Electronically Signed) Final Date: 27 May 2025 15:37 S
== END 2025-05-22 11:53 | disposition home or self-care (01) ==
LOC: RAD 11:53
PROVIDERS: PCP Family Medicine; Visit Provider Internal Medicine
DX: R07.9 Chest pain, unspecified (principal); R06.02 Shortness of breath; R93.1 Abnormal findings on diagnostic imaging of heart and coronary circulation; I35.8 Other nonrheumatic aortic valve disorders
CPT/HCPCS: 93306

== ENCOUNTER 2025-06-13 09:37 | Outpatient (CLI) | payer MEDICAID, SELFPAY ==
[2025-06-13 10:21] LABS: Hematocrit 33.4 % (36-47); Hemoglobin 10.80 g/dL (11.27-16.99); Mean Corpuscular HGB Conc 32.3 g/dL (30-55); Mean Corpuscular Hemoglobin 30.1 pg (27-33); Mean Corpuscular Volume 93.0 fl (85-98); Nucleated Red Blood Cells % 0 %; Platelet Count 281 10^3/cmm (157-399); Red Blood Count 3.59 10^6/uL (3.85-5.65); White Blood Count 5.81 10^3/uL (3.29-11.43)
[2025-06-13 11:05] LABS: Alanine Aminotransferase 29 U/L (0-33); Albumin Level 4.2 g/dL (3.5-5.2); Alkaline Phosphatase 196 U/L (35-105); Anion Gap 15.5 (5-19); Aspartate Amino Transferase 37 U/L (0-32); Blood Urea Nitrogen 21 mg/dL (8-23); Calcium 9.0 mg/dL (8.5-10.5); Carbon Dioxide 26 mmol/L (22-29); Chloride 103 mmol/L (98-107); Cholesterol 176 mg/dL (0-200); Globulin 3.3 g/dL (1.3-4.6); Glucose 98 mg/dL (65-115); HDL Cholesterol 47 mg/dL (60-100); Osmolality Calculated 295 mOsm/kg (285-295); Potassium 3.5 mmol/L (3.5-5.1); Sodium 141 mmol/L (136-145); Thyroid Stimulating Hormone 0.46 uIU/mL (0.27-4.20); Total Protein 7.5 g/dL (6.6-8.7); Triglycerides 163 mg/dL (0-150)
[2025-06-13 16:32] LABS: Free T4 Free Thyroxine 1.35 ng/dL (0.82-1.77)
== END 2025-06-13 09:38 | disposition home or self-care (01) ==
PROVIDERS: PCP Family Medicine; Visit Provider Family Medicine
DX: Z12.31 Encounter for screening mammogram for malignant neoplasm of breast (principal); R00.2 Palpitations; I10 Essential (primary) hypertension; E78.2 Mixed hyperlipidemia; E89.0 Postprocedural hypothyroidism; E87.6 Hypokalemia; E55.9 Vitamin D deficiency, unspecified
CPT/HCPCS: 36415; 80053; 80061; 82306; 84439; 84443; 85025

== ENCOUNTER 2025-08-08 17:42 | Emergency (ER) | payer MEDICAID, SELFPAY ==
[2025-08-08 17:43] VITALS: BP 134/82; PULSE 71; RESP 16; TEMP 36.8; O2SAT 98; BMI 25.7
--- NOTE | 2025-08-08 18:03 | W.ED.ANXIETY ---
HPI - Anxiety General: Chief Complaint: Anxiety Stated Complaint: Anxiety Time Seen by Provider: 08/08/25 17:44 Source: patient and EMS Mode of arrival: EMS Limitations: no limitations History of Present Illness: 60-year-old female states that she taken her blood pressure after she woke up overnight and it was 150 she became very concerned. States had some mild lightheadedness she denies any chest pain denies abdominal pain had some mild nausea. Blood pressure here currently is 119/81 she was having some slight anxiety. She denies any cough fever or recent illness. Related Data Home Medications ?Medication ?Instructions ?Recorded ?Confirmed levothyroxine 75 mcg capsule 75 mcg PO DAILY 07/06/23 06/13/25 lisinopril 20 1 tab PO DAILY 07/06/23 06/13/25 mg-hydrochlorothiazide 25 mg tablet albuterol 90 mcg/actuation aerosol mcg inhalation 04/19/25 06/13/25 inhaler alprazolam 1 mg tablet 2 mg PO DAILY 04/19/25 06/13/25 budesonide-formoterol HFA 160 2 puff inhalation BID 04/19/25 06/13/25 mcg-4.5 mcg/actuation aerosol inhaler galcanezumab-gnlm 120 mg/mL mg SUBCUT 04/19/25 06/13/25 subcutaneous pen injector (Emgality Pen) mirtazapine 15 mg tablet 30 mg PO DAILY 04/19/25 06/13/25 potassium chloride 10 mEq 10 meq PO BID 04/19/25 06/13/25 tablet,extended release (Klor-Con) Allergies Allergy/AdvReac Type Severity Reaction Status Date / Time codeine Allergy Severe Unknown Verified 04/19/25 13:27 metoprolol Allergy ADR-Gastrointestinal Verified 04/19/25 13:27 Upset [facility] ED PFSH: Social History Smoking and tobacco/nicotine status: former use of tobacco/nicotine Physical Exam Const: COMMON NORMALS: no acute distress, patient oriented x3 and healthy appearing HENMT: COMMON NORMALS: normocephalic and atraumatic HEAD & SCALP: normocephalic and atraumatic Neck/C-Spine: COMMON NORMALS: full ROM and supple Chest: COMMONS NORMALS: normal inspection of the chest and normal palpation of entire chest wall Resp: COMMON NORMALS: normal respiratory effort, No retractions, No use of accessory muscles and clear to auscultation bilaterally AUSCULTATION: clear to auscultation bilaterally Cardio: COMMON NORMALS: regular rate, regular rhythm and No murmurs present (Cardio) RATE: regular rate RHYTHM: regular rhythm GI: COMMON NORMALS: Normal to inspection, nondistended, normoactive bowel sounds present, Soft to palpation, non-tender and no masses PALPATION: Yes Soft to palpation Extremity: COMMON NORMALS: normal to inspection and full ROM Neuro: COMMON NORMALS: patient oriented x3, moves all extremities and no focal motor deficits Psych: COMMON NORMALS: mental status grossly normal, Normal thought process present and cooperative THOUGHT PROCESS: Normal thought process present Skin: COMMON NORMALS: no rashes or lesions noted and no wounds GENERAL SKIN EXAM: no rashes or lesions noted Course Vital Signs: Vital signs: Vital Signs Temperature 98.2 F 08/08/25 17:43 Pulse Rate 71 08/08/25 18:28 Respiratory Rate 16 08/08/25 17:43 Blood Pressure 112/84 08/08/25 18:28 Pulse Oximetry 96 08/08/25 18:28 Oxygen Delivery Me thod Room Air 08/08/25 18:28 MDM - Anxiety Medical Decision Making Patient presents for concerns of hypertension is had some slight nausea as well. She has been well-. Blood pressure currently is 125/86 she is to follow-up with her PCP and return if worsening she understands agrees to plan. Appearing her blood pressure here has been normal did review her labs showed no significant abnormalities Medical Records I reviewed the patient's medical records. Lab Data I reviewed the patient's lab results. 08/08/25 18:21 08/08/25 18:21 Laboratory Results WBC 6.17 10^3/uL (3.29-11.43) 08/08/25 18:21 RBC 3.43 10^6/uL (3.85-5.65) L 08/08/25 18:21 Hgb 10.00 g/dL (11.27-16.99) L 08/08/25 18:21 Hct 32.1 % (36-47) L 08/08/25 18:21 MCV 93.6 fl (85-98) 08/08/25 18:21 MCH 29.2 pg (27-33) 08/08/25 18:21 MCHC 31.2 g/dL (30-55) 08/08/25 18:21 RDW 13.7 % (12.1-15.1) 08/08/25 18:21 Plt Count 274 10^3/cmm (157-399) 08/08/25 18:21 MPV 10.4 fL (7.4-10.4) 08/08/25 18:21 Neut % (Auto) 65.6 % 08/08/25 18:21 Lymph % (Auto) 20.3 % 08/08/25 18:21 [place] % (Auto) 7.0 % 08/08/25 18:21 Eos % (Auto) 6.0 % 08/08/25 18:21 Baso % (Auto) 0.8 % 08/08/25 18:21 Neut # (Auto) 4.05 10^3/uL (1.8-7.7) 08/08/25 18:21 Lymph # (Auto) 1.3 10^3/uL (0.8-4.8) 08/08/25 18:21 [place] # (Auto) 0.4 10^3/uL (0.2-0.9) 08/08/25 18:21 Eos # (Auto) 0.4 10^3/uL (0.0-0.8) 08/08/25 18:21 Baso # (Auto) 0.1 10^3/uL (0.0-0.1) 08/08/25 18:21 Nucleated RBC % (auto) 0 % 08/08/25 18:21 Nucleated RBCs # 0.0 /100WBC 08/08/25 18:21 Sodium 143 mmol/L (136-145) 08/08/25 18:21 Potassium 3.9 mmol/L (3.5-5.1) 08/08/25 18:21 Chloride 109 mmol/L (98-107) H 08/08/25 18:21 Carbon Dioxide 22 mmol/L (22-29) 08/08/25 18:21 Anion Gap 15.9 (5-19) 08/08/25 18:21 BUN 21 mg/dL (8-23) 08/08/25 18:21 Creatinine 1.1 mg/dL (0.5-0.9) H 08/08/25 18:21 GFR Calculation 50.5 mL/min (90-130) L 08/08/25 18:21 Glucose 167 mg/dL (65-115) H 08/08/25 18:21 Calculated Osmolality 303 mOsm/kg (285-295) H 08/08/25 18:21 Calcium 8.2 mg/dL (8.5-10.5) L 08/08/25 18:21 Total Bilirubin 0.2 mg/dL (0.15-1.2) 08/08/25 18:21 AST 26 U/L (0-32) 08/08/25 18:21 ALT 29 U/L (0-33) 08/08/25 18:21 Alkaline Phosphatase 185 U/L (35-105) H 08/08/25 18:21 Total Protein 6.9 g/dL (6.6-8.7) 08/08/25 18:21 Albumin 3.8 g/dL (3.5-5.2) 08/08/25 18:21 Globulin 3.1 g/dL (1.3-4.6) 08/08/25 18:21 Lipase 43 U/L (13-60) 08/08/25 18:21 No radiology studies performed this visit Discharge Plan Discharge Patient Disposition: Home Clinical Impression: Hypertension Condition: Stable Prescriptions: No Action levothyroxine 75 mcg capsule 75 mcg PO DAILY lisinopril-hydrochlorothiazide 20-25 mg tablet 1 tab PO DAILY alprazolam 1 mg tablet 2 mg PO DAILY mirtazapine 15 mg tablet 30 mg PO DAILY potassium chloride [Klor-Con 10] 10 mEq tablet extended release 10 meq PO BID albuterol 90 mcg/actuation aerosol inhalation budesonide-formoterol 160-4.5 mcg/actuation HFA aerosol inhaler 2 puff inhalation BID Emgality Pen 120 mg/mL pen injector SUBCUT Discharge Orders: Discharge ED (Routine); Ordered 08/08/25 Ordered By: Kentrell Finley Referrals: Laura Austin DO [Primary Care Provider, Family Practice] - 4-7 days Discharge Diet: Advance as tolerated Discharge Activity: Resume usual activity Patient Instructions: Hypertension (ED) Print Language: Citizen Of [place] Coding Level of Care Code ED District Representative for Chg Jody
[2025-08-08 18:26] LABS: Hematocrit 32.1 % (36-47); Hemoglobin 10.00 g/dL (11.27-16.99); Mean Corpuscular HGB Conc 31.2 g/dL (30-55); Mean Corpuscular Hemoglobin 29.2 pg (27-33); Mean Corpuscular Volume 93.6 fl (85-98); Nucleated Red Blood Cells % 0 %; Platelet Count 274 10^3/cmm (157-399); Red Blood Count 3.43 10^6/uL (3.85-5.65); White Blood Count 6.17 10^3/uL (3.29-11.43)
[2025-08-08] MEDS: ondansetron 2 mg/ML SDV 2 mL 4 MG IVP (18:26)
[2025-08-08 18:28] VITALS: BP 112/84; PULSE 71; O2SAT 96
[2025-08-08 18:51] LABS: Alanine Aminotransferase 29 U/L (0-33); Albumin Level 3.8 g/dL (3.5-5.2); Alkaline Phosphatase 185 U/L (35-105); Anion Gap 15.9 (5-19); Aspartate Amino Transferase 26 U/L (0-32); Blood Urea Nitrogen 21 mg/dL (8-23); Calcium 8.2 mg/dL (8.5-10.5); Carbon Dioxide 22 mmol/L (22-29); Chloride 109 mmol/L (98-107); Globulin 3.1 g/dL (1.3-4.6); Glucose 167 mg/dL (65-115); Lipase 43 U/L (13-60); Osmolality Calculated 303 mOsm/kg (285-295); Potassium 3.9 mmol/L (3.5-5.1); Sodium 143 mmol/L (136-145); Total Protein 6.9 g/dL (6.6-8.7)
--- OUTSIDE RECORDS SUMMARY | 2025-08-08 18:55 | XMS_ITS | Encounter Summary ---
Author Organization [facility] Address [address] [place] [address] Care Team Providers Care Associate Professor Of Communication Name Role Phone Laura Austin DO Primary Care Provider [phone] Reason for Referral * Medication Prior Authorization - Authorized Specialty Diagnoses / Procedures Referred By Rudy reyes Referred To Contact Diagnoses Generalized anxiety disorder aLura Austin DO [address] [place] [address] Phone: tel: fax: Referral ID Status Reason Start Date Expiration Date V isits Requested Visits Authorized [id number] Authorized 07/26/2025 09/19/2025 1 1 [employer] Reason for Visit * Reason Comments Medication Assistance Needs Form Or Letter Filled Out Encounter Details Date Type Department Care Team ([facility] Contact Info) Description 07/24/2025 Telephone [facility] Medicine [place] [address] [place] [address] Laura Austin DO [address] [place] [address] Medication Assistance; Needs Form Or Letter Filled Out Social History Tobacco Use Types Packs/Day Years Used Date Smoking Tobacco: Former Cigarettes Q uit: 09/20/2018 Passive Smoke Exposure: Past Smokeless Tobacco: Never Alcohol Use Standard Drinks/Week Comments No 0 (1 standard drink = 0.6 oz pur e alcohol) Comments No Sex and Gender Information Value Date Recorded Sex Assigned at Not on file Legal Sex Female 4:23 AM [employer] Gender Identity Not on file Sexual Orientation Not on file documented as of this encounter Miscellaneous Notes * Telephone Encounter - Ro Sol LPN - 08/02/2025 9:50 AM CST 08/02/2025 9:50 AM I spoke with pt and advised her of this message from provider and pt verbalized understanding. Ro DOMINGUEZ [employer] * Telephone Encounter - Laura Austin DO - 08/01/2025 6:22 PM [employer] I am weaning her off the xanax and put her on lexapro. She was able to fill the xanax XR one daily for #30 so she can stay on this for now. Tell her to go down on the short acting xanax to one tablettwice a day. She will not withdraw by going down this amount. [employer] * Addendum Note - Ro Sol LPN - 07/31/2025 9:37 AM CSTAddended by: RO SOL on: 07/31/2025 09:37 AM Modules accepted: Orders [employer] * Telephone Encounter - Ro Sol LPN - 07/31/2025 9:19 AM CST 07/31/2025 9:19 AM Spoke with pharmacy, stated they are needing a PA on pt's Xanax 1 mg. Pt filled #60 on 07/26/25 and picked up on 07/30/25 pt will need a new script and will need a PA. Ro DOMINGUEZ [employer] * Telephone Encounter - Yoselin Mitchell - 07/31/2025 9:09 AM CST Copied from [facility] #[id number]. Topic: CPA Information Request - Authorization >> Jul 31, 2025 9:07 AM Yoselin Moreau wrote: Caller is calling to check the status of an authorization for a medication. Caller Name: Annie Panchal Callback Number: [phone] Call Notes: States pharmacy needs prior authorization to fill the add'l 60 tablets. Pt states she is good for 15 more days. Pt states if she does need to pay out of pocket she will. Please, advise. Who is calling? Patient or Pharmacy Medication Name: ALPRAZolam (XANAX) 1 mg tablet If callers offers any of the following Prescription Plan information add it below (not required): Rx Insurance Name: E-[employer] MEDICAID/[facility] [id number] Patient RX Bin#: RX PCN #: RX Group #: What is the status of the prior authorization? No Status Listed [employer] * Telephone Encounter - Laura Austin DO - 07/24/2025 3:31 PM [employer] I resent these to [facility] but I can't guarantee her that they will fill them either. I warned her this could happen. [employer] * Telephone Encounter - Bradly Herbert - 07/24/2025 2:34 PM CST Copied from [facility] #[id number]. Topic: Medication Request >> Jul 24, 2025 2:18 PM Bradly Elkins wrote: Caller Name: Annie Panchal Callback Number: Telephone Information: Medication (Ask patient/caregiver to spell if possible): ALPRAZolam (XANAX) 1 mg tablet, ALPRAZolam(Xanax XR) 1 mg Extended Release 24 hour tablet. Note: All medication prescriptions can be requested using one CRM Call Notes: Patient is requesting the scripts that were sent to [facility] earlier today 07/24/2025 besent to [facility] in [place]. [facility] was mean to the patient and made her cry. Patient was questions why she was taking so much medication and made to feel guilty for taking the medication. Patient stated [facility] was needing a prior authorization and diagnosis code for the extended release tablet, if [facility] was going to fill the medication. Patient has chosen not to use [facility] for their poor customer service skills. Please review and call the patient to advise when the scripts are transferred to [facility] in [place]. Request: Change Pharmacy Did the patient/caregiver contact their pharmacy prior to calling? Yes Caller requests to send to a different pharmacy, update and send refill to [id number] - [place], [place] - [address] [address] Is there an encounter open? No [employer] documented in this encounter Plan of Treatment Upcoming Encounters Date Type Department Care Team (Late st Contact Info) Description 08/23/2025 10:40 AM [employer] Office Visit [facility] [place] [address] [place] [id number] Laura Austin, [address] [place] [address] 02/08/2026 9:00 AM CDT Office Visit [facility] [place] [facility] [place] [address] [place] [phone] Maria Antonia Barr MD [address] [place] [address] documented as of this encounter Visit Diagnoses Diagnosis Generalized anxiety disorder documented in this encounter Care Teams Associate Professor Of Communication Relationship Specialty Start Date End Date Laura Austin DO [address] [place] [address] PCP - General Family Practice 07/16/15 documented as of this encounter
--- OUTSIDE RECORDS SUMMARY | 2025-08-08 18:55 | XMS_ITS | Clinical Summary ---
Author Organization [facility] Address [address] [place] [address] Care Team Providers Care Student Accounts Coordinator Name Role Phone Laura Austin Primary Care Provider [phone] Allergies Active Allergy Reactions Criticality Noted Date Comments Codeine Hives High 02/26/2009 Metoprolol Nausea and Vomiting Low 01/14/2017 Medications potassium chloride (KLOR-CON) 10 mEq Extended Release tablet Take 1 tablet by mouth twice daily 180 Tablet 4 08/27/20 24 Active budesonide-form oteroL (SYMBICORT) 160-4.5 mcg/actuation HFA Aerosol InhalerIndicati ons:Panlobular emphysema (CMS/HCC) Take 2 Puffs by inhalation 2 times daily. 10.7 Gram 01/04/20 25 Active Ventolin HFA 90 mcg/actuation inhalerIndicati ons:Chronic obstructive pulmonary disease, unspecified COPD type (CMS/HCC) Take 2 Puffs by inhalation every 6 hours as needed for Shortness of Breath. 18 Gram 6 01/04/20 25 Active mirtazapine (REMERON) 30 mg tablet TAKE 1 TABLET BY MOUTH ONCE DAILY AT BEDTIME 100 Tablet 3 01/23/20 25 Active galcanezumab-gn lm (Emgality Pen) 120 mg/mL Pen Injector INJECT 1ML SUB-Q EVERY 28 DAYS 1 mL 6 05/01/20 25 Active ALPRAZolam (Xanax XR) 1 mg Extended Release 24 hour tabletIndicatio ns:Generalized anxiety disorder Take 1 Tablet (1 mg) by mouth daily. 30 Tablet 1 07/24/20 Active ALPRAZolam (XANAX) 1 mg tabletIndicatio ns:Generalized anxiety disorder TAKE 2 TABLETS BY MOUTH TWICE DAILY NEEDED FOR ANXIETY. 120 Tablet 3 07/24/20 Active escitalopram oxalate (LEXAPRO) 5 mg tablet Take 1 Tablet (5 mg) by mouth daily. 90 Tablet 4 07/24/20 Active lisinopriL (PRINIVIL) 20 mg tablet Take 1 Tablet (20 mg) by mouth 2 times daily. 180 Tablet 1 07/31/20 Active levothyroxine 50 mcg tablet Take 1 Tablet (50 mcg) by mouth daily in the morning. 90 Tablet 4 07/31/20 Active lisinopril-hydr oCHLOROthiazide (ZESTORETIC) 20-25 mg tabletIndicatio ns:Essential hypertension Take 1 Tablet by mouth daily. 90 Tablet 4 12/27/19 25 025 Discontinued levothyroxine 75 mcg tabletIndicatio ns:Postoperativ e hypothyroidism, Encounter for follow-up surveillance of thyroid cancer,Former smoker,Tachycar perry,Palpitation s Take 1 Tablet (75 mcg) by mouth daily in the morning. 360 Tablet 02/06/20 25 025 Discontinued dilTIAZem (CARDIZEM CD, CARTIA XT) 120 mg Controlled Delivery 24 hour capsule Take 1 Capsule (120 mg) by mouth daily. 30 Capsule 3 02/27/20 25 025 Discontinued ALPRAZolam (XANAX) 1 mg tabletIndicatio ns:Generalized anxiety disorder TAKE 2 TABLETS BY MOUTH TWICE DAILY NEEDED FOR ANXIETY. Do not fill until 05/04/2025 120 Tablet 3 04/30/20 25 025 Discontinued escitalopram oxalate (LEXAPRO) 5 mg tablet Take 1 Tablet (5 mg) by mouth daily. 90 Tablet 4 07/24/20 25 025 Discontinued(R eorder) ALPRAZolam (XANAX) 1 mg tabletIndicatio ns:Generalized anxiety disorder TAKE 2 TABLETS BY MOUTH TWICE DAILY NEEDED FOR ANXIETY. 120 Tablet 3 07/24/20 25 025 Discontinued(O ther) ALPRAZolam (Xanax XR) 1 mg Extended Release 24 hour tabletIndicatio ns:Generalized anxiety disorder Take 1 Tablet (1 mg) by mouth daily. 30 Tablet 1 07/24/20 25 025 Discontinued(O ther) levothyroxine 50 mcg tablet Take 1 Tablet (50 mcg) by mouth daily in the morning. 90 Tablet 4 07/31/20 25 025 Discontinued(R eorder) lisinopriL (PRINIVIL) 20 mg tablet Take 1 Tablet (20 mg) by mouth 2 times daily. 180 Tablet 1 07/31/20 25 025 Discontinued(R eorder) Active Problems Problem Noted Date Diagnosed Date Vitamin D deficiency 05/13/2025 History of thyroid cancer 12/02/2022 Chronic obstructive pulmonary disease 02/13/2022 Chronic migraine without aur a without status migrainosus, not intractable 02/18/2021 Tobacco dependence 12/26/2020 Primary insomnia 12/26/2020 Stage 3a chronic kidney disease 03/19/2020 Panic attacks 04/24/2018 Generalized anxiety disorder 04/24/2018 Postoperative hypothyroidism 09/04/2015 Mixed hyperlipidemia 07/24/2015 Essential hypertension 07/24/2015 Resolved Problems Problem Noted Date Diagnosed Date Resolved Date Moderate episode of recurren t major depressive disorder 09/22/2022 07/20/2023 Thyroid nodule, cold 02/27/2010 015 Multinodular goiter 02/27/2010 06/16/20 15 Hyperthyroidism 08/06/2009 06/16/2015 Tubal 06/16/2015 Overview (01/15/2021): Updating IMO/ICD9 Code and Description Encounters Date Type Department Care Team Description 07/31/2025 Orders Only [facility] [address] [place] [address] Ro Sol LPN 07/31/2025 Orders Only [facility] [address] [place] [address] Laura Austin DO 07/31/2025 Results Follow-Up [facility] [address] [place] [facility] [address] Laura Austin, DO T4 FREE 07/24/2025 11:00 AM AUDIO VIDEO MECHANIC Office Visit [facility] [address] [place] [address] Laura Austin, DO Generalized anxiety disorder (Primary Dx); Screening mammogram, encounter for; Essential hypertension; Mixed hyperlipidemia; Panic attacks; Stage 3a chronic kidney disease (CMS/HCC); Panlobular emphysema (CMS/HCC); Postoperative hypothyroidism; Chronic migraine without aura without status migrainosus, not intractable; History of thyroid cancer; Primary insomnia; Tobacco dependence; Vitamin D deficiency 07/24/2025 Telephone [facility] [address] [place] [address] Laura Austin, Medication Assistance; Needs Form Or Letter Filled Out 07/18/2025 External Device Data STL ABSTRACTION Provider, Abstract 07/18/2025 External Device Data STL ABSTRACTION Provider, Abstract 06/20/2025 Telephone [facility] [address] [place] [address] Laura Austin, Patient Communication 06/17/2025 Results Follow-Up [facility] [address] [place] [address] Laura Austin, T4 FREE 05/15/2025 External Device Data STL ABSTRACTION Provider, Abstract 05/15/2025 External Device Data STL ABSTRACTION Provider, Abstract 05/09/2025 3:40 PM CDT Office Visit [facility] [address] [place] [address] Laura Austin, Heart palpitations (Primary Dx); Screening mammogram, encounter for; Essential hypertension; Mixed hyperlipidemia; Panic attacks; Postoperative hypothyroidism; History of thyroid cancer; Vitamin D deficiency; Stage 3a chronic kidney disease ([facility]/HCC) 05/08/2025 External Device Data STL ABSTRACTION Provider, Abstract from Last 3 Months Family History Medical History Relation Name Comments Colon Cancer Father Kenny panchal High blood pres sure,reyna disease,,thyriod Diabetes Father Kenny panchal Hypertension Father Kenny panchal Kidney Disease Father Kenny panchal Anemia Mother Rebecca panchal,and myself Colon Cancer Mother Rebecca panchal,and myself Test Deskman ns ,rymatory arthritis ,thyroid Other Mother Rebecca panchal,and myself Croh n's disease Stroke Mother Rebecca panchal,and myself Cancer Sister iLlly panchal.Thro id cancer. . Breast Cancer Neg Hx Relation Name Status Comments Father Kenny panchal Alive Mother Rebecca panchal,and myself Sister Lilly panchal.Throid cancer. . Dece ased Social History Tobacco Use Types Packs/Day Years Used Date Smoking Tobacco: Former Cigarettes Q uit: 09/20/2018 Passive Smoke Exposure: Past Smokeless Tobacco: Never Tobacco Cessation:Counseling Given: No Alcohol Use Standard Drinks/Week Comments No 0 (1 standard drink = 0.6 oz pur e alcohol) Comments No Sex and Gender Information Value Date Recorded Sex Assigned at Not on file Legal Sex Female 4:23 AM AUDIO VIDEO MECHANIC Gender Identity Not on file Sexual Orientation Not on file Last Filed Vital Signs Vital Sign Reading Time Taken Comments Blood Pressure 102/76 07/24/2025 10:45 AM AUDIO VIDEO MECHANIC Pulse 147 07/24/2025 10:45 AM AUDIO VIDEO MECHANIC Temperature 36.9 C (98.5 F) 07/24/2025 10:45 AM AUDIO VIDEO MECHANIC Respiratory Rate 19 07/24/2025 10:45 AM AUDIO VIDEO MECHANIC Oxygen Saturation 97% 07/24/2025 10:45 AM AUDIO VIDEO MECHANIC Inhaled Oxygen Concentration - - Weight 67 kg (147 lb 9.6 oz) 07/24/2025 10:45 AM AUDIO VIDEO MECHANIC Height 162.6 cm (5' 4 ) 07/24/2025 10:45 AM AUDIO VIDEO MECHANIC Body Mass Index 25.34 07/24/2025 10:45 AM AUDIO VIDEO MECHANIC Plan of Treatment Upcoming Encounters Date Type Department Care Team (Late st Contact Info) Description 08/23/2025 10:40 AM AUDIO VIDEO MECHANIC Office [facility] [address] [place] [phone] Laura Austin, DO [address] [place] [address] 02/08/2026 9:00 AM CDT Office Visit [facility] Endocrinology [facility] [address] [place] [address] Maria Antonia Barr MD [address] [place] [address] Health Maintenance Due Date Last Done Comments Pre-Diabetes and Diabetes Screening 1965 DTAP/TDAP/TD VACCINES (1 - Tdap) 1983 Preventative Visit-Managed Medicaid 1983 HPV/Cotest (21-29) 1985 CERVICAL CANCER SCREENING 1994 HPV/Cotest (30-65) 1994 PAP SMEAR 1994 BREAST CANCER SCREENING 2004 FIT-DNA Q 3 years 2009 FIT/FOBT Q 1 year 2009 Flex Sig/CT Colonography Q 5 years 2009 RSV VACCINE (60+ or ) (1 - Risk 50-74 years 1-dose series) 2014 ZOSTER VACCINE (1 of 2) 2014 INFLUENZA VACCINE (#1) 2025 06/16/2021 COLORECTAL SCREENING 08/22/2028 08/22/2018 Colorectal Cancer Screening 08/22/2028 Procedures Procedure Name Priority Date/Time Associated Diagnosis Comments TSH Routine 07/24/2025 11:47 AM AUDIO VIDEO MECHANIC Screening mammogram, encounter for Generalized anxiety disorder Essential hypertension Mixed hyperlipidemia Panic attacks Stage 3a chronic kidney disease (CMS/HCC) T4 FREE Routine 07/24/2025 11:47 AM AUDIO VIDEO MECHANIC Screening mammogram, encounter for Generalized anxiety disorder Essential hypertension Mixed hyperlipidemia Panic attacks Stage 3a chronic kidney disease (CMS/HCC) T3 FREE Routine 07/24/2025 11:47 AM AUDIO VIDEO MECHANIC Screening mammogram, encounter for Generalized anxiety disorder Essential hypertension Mixed hyperlipidemia Panic attacks Stage 3a chronic kidney disease (CMS/HCC) COMPREHENSIVE METABOLIC PANEL Routine 07/24/2025 11:47 AM AUDIO VIDEO MECHANIC Screening mammogram, encounter for Generalized anxiety disorder Essential hypertension Mixed hyperlipidemia Panic attacks Stage 3a chronic kidney disease (CMS/HCC) T4 FREE Routine 06/14/2025 Screening mammogram, encounter for Heart palpitations Essential hypertension Mixed hyperlipidemia Panic attacks Postoperative hypothyroidism History of thyroid cancer Vitamin D deficiency TSH Routine 06/14/2025 Screening mammogram, encounter for Heart palpitations Essential hypertension Mixed hyperlipidemia Panic attacks Postoperative hypothyroidism History of thyroid cancer Vitamin D deficiency COMPREHENSIVE METABOLIC PANEL Routine 06/14/2025 Screening mammogram, encounter for Heart palpitations Essential hypertension Mixed hyperlipidemia Panic attacks Postoperative hypothyroidism History of thyroid cancer Vitamin D deficiency VITAMIN D 25 HYDROXY Routine 06/14/2025 Screening mammogram, encounter for Heart palpitations Essential hypertension Mixed hyperlipidemia Panic attacks Postoperative hypothyroidism History of thyroid cancer Vitamin D deficiency LIPID PANEL Routine 06/13/2025 10:00 AM CDT Screening mammogram, encounter for Heart palpitations Essential hypertension Mixed hyperlipidemia Panic attacks Postoperative hypothyroidism History of thyroid cancer Vitamin D deficiency CBC WITH DIFFERENTIAL Routine 06/13/2025 Screening mammogram, encounter for Heart palpitations Essential hypertension Mixed hyperlipidemia Panic attacks Postoperative hypothyroidism History of thyroid cancer Vitamin D deficiency from Last 3 Months Results * T3 FREE (07/24/2025 11:47 AM AUDIO VIDEO MECHANIC) T3 FREE 2.8 2.3 - 4.2 pg/mL [email or web address] Comment: FASTING:UNKNOWN FASTING: UNKNOWN Test Performed at: [email or web address] [address] [place] [address] Everton Grande MD Blood 07/24/2025 11:4 7 AM AUDIO VIDEO MECHANIC 07/24/2025 11:48 AM AUDIO VIDEO MECHANIC us Laura Austin DO CHEMISTRY ORDERABLES Final Result [facility] [phone] [facility] [address] [place] [address] * (ABNORMAL) TSH (07/24/2025 11:47 AM AUDIO VIDEO MECHANIC) Only the most recent of2 resultswithin the time period is included. [facility] TSH 0.18(L) 0.40 - 4.50 mIU/L [email or web address] Comment: Test Performed at: [email or web address] [address] Everton Grande MD Blood 07/24/2025 11:4 7 AM AUDIO VIDEO MECHANIC 07/24/2025 11:48 AM AUDIO VIDEO MECHANIC Laura Jie Norman DO CHEMISTRY ORDERABLES Final Result Performing Organization Address [facility] Co de Phone Number [facility] [phone] [facility] [address] * T4 FREE (07/24/2025 11:47 AM AUDIO VIDEO MECHANIC) Only the most recent of2 resultswithin the time period is included. [facility] T4 FREE 1.6 0.8 - 1.8 ng/dL [email or web address] Comment: Test Performed at: [email or web address] [address] Everton Grande MD Blood 07/24/2025 11:4 7 AM AUDIO VIDEO MECHANIC 07/24/2025 11:48 AM AUDIO VIDEO MECHANIC Laura Jie Norman DO CHEMISTRY ORDERABLES Final Result Performing Organization Address City/[facility]/ZIP Co de Phone Number [facility] [phone] [facility] [address] * (ABNORMAL) COMPREHENSIVE METABOLIC PANEL (07/24/2025 11:47 AM AUDIO VIDEO MECHANIC) Only the most recent of2 resultswithin the time period is included. [facility] GLUCOSE 114(H) 65 - 99 mg/dL [email or web address] Comment: Fasting reference interval For someone without known diabetes, a glucose value between 100 and 125 mg/dL is consistent with prediabetes and should be confirmed with a follow-up test. BUN 26(H) 7 - 25 mg/dL [facility] CREATININE 1.39(H) 0.50 - 1.05 mg/dL [facility] GFR 43(L) > OR = 60 mL/min/1.7 3m2 [facility] BUN/CREAT RATIO 19 6 - 22 (calc) [facility] SODIUM 139 135 - 146 mmol/L [facility] POTASSIUM 3.7 3.5 - 5.3 mmol/L [facility] CHLORIDE 98 98 - 110 mmol/L [facility] CO2 28 20 - 32 mmol/L [facility] CALCIUM 9.8 8.6 - 10.4 mg/dL [facility] TOTAL PROTEIN 7.8 6.1 - 8.1 g/dL [facility] ALBUMIN 4.4 3.6 - 5.1 g/dL [facility] GLOBULIN 3.4 1.9 - 3.7 g/dL (calc) [facility] ALBUMIN/GLOBULIN RATIO 1.3 1.0 - 2.5 (calc) [facility] BILIRUBIN TOTAL 0.4 0.2 - 1.2 mg/dL [facility] ALKALINE PHOSPHATASE 195(H) 37 - 153 U/L [facility] AST 51(H) 10 - 35 U/L [facility] ALT 68(H) 6 - 29 U/L [facility] Comment: FASTING:UNKNOWN FASTING: UNKNOWN Test Performed at: [email or web address] [place] [address] [place] [address] Everton Grande MD Blood 07/24/2025 11:4 7 AM AUDIO VIDEO MECHANIC 07/24/2025 11:48 AM AUDIO VIDEO MECHANIC us Laura Austin DO CHEMISTRY ORDERABLES Final Result [facility] [phone] [facility] [address] [address] [place] [address] * VITAMIN D 25 HYDROXY (06/14/2025) Blood us Laura Austin DO CHEMISTRY ORDERABLES Final Result EXTERNAL LAB * LIPID PANEL (06/13/2025 10:00 AM CDT) ABSTRACTED CHOLESTEROL 176 EXTERNAL LAB ABSTRACTED TRIGLYCERIDE 163 EXTERNAL LAB ABSTRACTED HDL 47 EXTERNAL LAB ABSTRACTED LDL CALCULATED 96 EXTERNAL LAB Blood 06/13/2025 10:0 0 AM CDT us Laura Austin DO CHEMISTRY ORDERABLES Final Result Performing Organization Address City/[facility] Co de Phone Number EXTERNAL LAB * CBC WITH DIFFERENTIAL (06/13/2025) Blood Laura Austin DO HEMATOLOGY ORDERABLES Final Result Performing Organization Address City/[facility] Co de Phone Number EXTERNAL LAB from Last 3 Months Insurance * Guarantor: Annie Panchal Account Type Relation to Patient Date of Phone Billing Address Personal/Family Self 1965 [address] [facility] [address] [place] [address] [facility] [id number] Care Teams Student Accounts Coordinator Relationship Specialty Start Date End Date Laura Austin DO [address] [place] [address] PCP - General Family Practice 07/16/15
--- OUTSIDE RECORDS SUMMARY | 2025-08-08 18:55 | XMS_ITS | Encounter Summary ---
Author Organization [facility] Address [address] [place] [address] Care Team Providers Care Communications Director Name Role Phone Laura Austin DO Primary Care Provider Encounter Details Date Type Department Care Team (Late Contact Info) Description 06/17/2025 Results Follow-Up [facility] [address] [place] [address] Laura Austin DO [address] [place] [address] T4 FREE Social History Tobacco Use Types Packs/Day Years Used Date Smoking Tobacco: Former Cigarettes Q uit: 09/20/2018 Passive Smoke Exposure: Past Smokeless Tobacco: Never Alcohol Use Standard Drinks/Week Comments No 0 (1 standard drink = 0.6 oz pur e alcohol) Comments No Sex and Gender Information Value Date Recorded Sex Assigned at Not on file Legal Sex Female 4:23 AM EMPLOYMENT COORDINATOR Gender Identity Not on file Sexual Orientation Not on file documented as of this encounter Plan of Treatment Upcoming Encounters Date Type Department Care Team ([facility] Contact Info) Description 08/23/2025 10:40 AM EMPLOYMENT COORDINATOR Office Visit [facility] [address] [place] [address] Laura Austin DO [address] [place] [address] 02/08/2026 9:00 AM CDT Office Visit [facility] [address] [place] [address] Maria Antonia Barr MD [address] [facility] [address] [place] [address] documented as of this encounter Visit Diagnoses Not on filedocumented in this encounter Care Teams Communications Director Relationship Specialty Start Date End Date Laura Austin DO [address] [place] [address] PCP - General Family Practice 07/16/15 documented as of this encounter
[2025-08-08 19:22] VITALS: BP 125/86; PULSE 74; O2SAT 96
--- NOTE | 2025-08-08 19:29 | ECG_ITS ---
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 Measurements Intervals [place] Rate: 66 P: 57 TN: 172 QRS: 4 QRSD: 92 T: 87 QT: 343 QTc: 361 Interpretive Statements SINUS RHYTHM Compared to ECG 04/19/2025 13:25:56 Sinus tachycardia no longer present Incomplete right bundle-branch block no longer present Electronically Signed On 08-08-2025 23:51:53 FRICTION SAW OPERATOR by Beau Swartz M.D. [id number]
== END 2025-08-08 19:47 | disposition home or self-care (01) ==
PROVIDERS: Emergency Provider Emergency Medicine; PCP Family Medicine
DX: I10 Essential (primary) hypertension (principal); Z87.891 Personal history of nicotine dependence
CPT/HCPCS: 80053; 83690; 85025; 93005; 96374; 96375; 99284; J1885; J2405